=== PATIENT | female | born 1940 | race Caucasian/White ===

== ENCOUNTER 2017-09-27 13:00 | Outpatient (CLI) | payer MEDICARE, BC ==
[~2017-09-27] VITALS: Ht 157.5 cm; Wt 65.3 kg
[2017-09-27] MEDS ORDERED: albuterol 2.5 MG/3 ML nebule NEB ONE (13:25)
[2017-09-27 13:30] LABS: TOTAL HEMOGLOBIN 14.8 G/dl (12.0-16.0)
== END 2017-09-27 23:59 | disposition home or self-care (01) ==
LOC: RT 13:00
PROVIDERS: ATTEND Internal Medicine
DX: J44.9 Chronic obstructive pulmonary disease, unspecified (principal); R06.02 Shortness of breath
CPT/HCPCS: 85018; 94060; 94640; 94727; 94729